=== PATIENT | male | born 1965 | race Hispanic/Latino ===

== ENCOUNTER 2017-05-11 15:56 | Inpatient (IN) | payer MEDICARE ==
[~2017-05-11] VITALS: Ht 170.2 cm; Wt 71.9 kg
[2017-05-11] MEDS ORDERED: MORPHINE SULFATE 4 MG/1ML SYG ONE (17:46)
[2017-05-11] MEDS ORDERED: ONDANSETRON HCL MDV 20ML 2 MG/ML VIAL ONE (17:47)
[2017-05-11 18:09] LABS: BASOPHILS % (AUTO) 0.5 % (0.0-5.0); EOSINOPHILS % (AUTO) 1.2 % (0.0-8.0); HEMATOCRIT 45.3 % (42-54); LYMPHOCYTES % (AUTO) 21.2 % (21.0-51.0); MEAN CORPUSCULAR HEMOGLOBIN 33.9 pg (27.0-33.0); MEAN CORPUSCULAR HGB CONC 36.1 g/dL (32.0-36.0); MEAN CORPUSCULAR VOLUME 93.8 fL (79-99); MONOCYTES % (AUTO) 7.1 % (3.0-13.0); PLATELET COUNT (AUTO) 75 K/uL (130-400); RED BLOOD CELL COUNT(AUTO) 4.83 MIL/uL (4.50-6.20); RED CELL DISTRIBUTION WIDTH 12.9 % (11.0-15.5); WHITE BLOOD COUNT (AUTO) 6.3 K/uL (4.8-10.8)
[2017-05-11 18:19] LABS: INR 1.07 (0.85-1.15); PARTIAL THROMBOPLASTIN TIME 27.1 SEC (26.3-35.5); PROTHROMBIN TIME 11.2 SEC (9.6-11.6)
[2017-05-11 18:41] LABS: CREATININE 0.9 mg/dL (0.5-1.5); POTASSIUM 3.6 mmol/L (3.5-5.1)
[2017-05-11 18:46] LABS: ALBUMIN 3.3 g/dL (3.5-5.0); BILIRUBIN,TOTAL 0.8 mg/dL (0.2-1.0); TOTAL PROTEIN, SERUM 8.6 g/dL (6.0-8.3)
[2017-05-11 20:40] VITALS: BP 147/93
[2017-05-11] MEDS ORDERED: SODIUM CHLORIDE 0.9% 1000ML 1,000 ML IV ONE (21:36)
[2017-05-11 23:37] VITALS: BP 135/73
[2017-05-12] VITALS (21 sets, daily range): BP systolic 85–173; BP diastolic 42–97
[2017-05-12] MEDS ORDERED: VANCOMYCIN 1GM+NS 250ML 250 ML IV SCH (04:15)
[2017-05-12] MEDS: METRONIDAZOLE 500MG/100ML BAG 100 ML IV SCH ×4 (04:15→21:37)
[2017-05-12] MEDS ORDERED: METRONIDAZOLE 500MG/100ML BAG 100 ML ONE (04:22)
[2017-05-12] MEDS ORDERED: VANCOMYCIN 1GM+NS 250ML 250 ML IV ONE (04:23)
[2017-05-12] MEDS ORDERED: VANCOMYCIN PROTOCOL PER PHARMACY IV SCH (05:45)
[2017-05-12 06:15] LABS: HEMATOCRIT 42.9 % (42-54); MEAN CORPUSCULAR HEMOGLOBIN 33.5 pg (27.0-33.0); MEAN CORPUSCULAR HGB CONC 35.5 g/dL (32.0-36.0); MEAN CORPUSCULAR VOLUME 94.3 fL (79-99); PLATELET COUNT (AUTO) 70 K/uL (130-400); RED BLOOD CELL COUNT(AUTO) 4.56 MIL/uL (4.50-6.20); RED CELL DISTRIBUTION WIDTH 12.5 % (11.0-15.5); WHITE BLOOD COUNT (AUTO) 6.8 K/uL (4.8-10.8)
[2017-05-12 06:24] LABS: CREATININE 0.9 mg/dL (0.5-1.5); POTASSIUM 3.6 mmol/L (3.5-5.1)
[2017-05-12] MEDS ORDERED: PROPOFOL 10 MG/ML 20ML VIAL IV ONE (11:02)
[2017-05-12] MEDS: VANCOMYCIN 1GM+NS 250ML 250 ML IV SCH (17:28)
[2017-05-12] MEDS ORDERED: BISACODYL 10 MG SUPP.RECT RC SCH (19:30)
[2017-05-12] MEDS ORDERED: PEG 3350/NA SULF,BICARB,CL/KCL 4000 ML SOLN PO SCH (19:30)
[2017-05-12] MEDS ORDERED: MAGNESIUM CITRATE 296 ML SOLUTION PO SCH (20:15)
[2017-05-12] MEDS ORDERED: MAGNESIUM HYDROXIDE 30 ML/UDCUP PO SCH (20:15)
[2017-05-12] MEDS ORDERED: LACTULOSE 20 GM/30 ML UDCUP PO SCH (20:15)
[2017-05-13 03:05] VITALS: BP 142/94
[2017-05-13] MEDS: METRONIDAZOLE 500MG/100ML BAG 100 ML IV SCH ×4 (04:40→23:58)
[2017-05-13] MEDS: VANCOMYCIN 1GM+NS 250ML 250 ML IV SCH ×2 (06:29→16:26)
[2017-05-13 07:00] VITALS: BP 158/97
[2017-05-13 11:00] VITALS: BP 153/97
[2017-05-13] MEDS ORDERED: MEPERIDINE-PF 25 MG/ML SYG IM SCH (15:15)
[2017-05-13] MEDS ORDERED: MAGNESIUM CITRATE 296 ML SOLUTION PO SCH (15:15)
[2017-05-13 15:50] VITALS: BP 164/96
[2017-05-13 19:05] VITALS: BP 157/99
[2017-05-13] MEDS ORDERED: MEPERIDINE-PF 25 MG/ML SYG ONE ×2 (19:24→23:11)
[2017-05-13] MEDS ORDERED: MEPERIDINE-PF 25 MG/ML SYG IVP SCH (19:45)
[2017-05-13] MEDS ORDERED: BISACODYL 10 MG SUPP.RECT RC ONE ×2 (21:00→23:10)
[2017-05-13 23:05] VITALS: BP 145/77
[2017-05-14 03:05] VITALS: BP 153/74
[2017-05-14 03:27] LABS: HEMATOCRIT 42.1 % (42-54); MEAN CORPUSCULAR HEMOGLOBIN 33.5 pg (27.0-33.0); MEAN CORPUSCULAR HGB CONC 35.9 g/dL (32.0-36.0); MEAN CORPUSCULAR VOLUME 93.3 fL (79-99); NUCLEATED RED BLOOD CELLS 0.1 % (0.0-0.19); PLATELET COUNT (AUTO) 60 K/uL (130-400); RED BLOOD CELL COUNT(AUTO) 4.51 MIL/uL (4.50-6.20); RED CELL DISTRIBUTION WIDTH 12.6 % (11.0-15.5); WHITE BLOOD COUNT (AUTO) 5.6 K/uL (4.8-10.8)
[2017-05-14 03:46] LABS: CREATININE 0.9 mg/dL (0.5-1.5); POTASSIUM 3.6 mmol/L (3.5-5.1)
[2017-05-14] MEDS: VANCOMYCIN 1GM+NS 250ML 250 ML IV SCH ×2 (05:19→17:29)
[2017-05-14] MEDS: METRONIDAZOLE 500MG/100ML BAG 100 ML IV SCH ×3 (06:53→17:29)
[2017-05-14 08:00] VITALS: BP 157/91
[2017-05-14 12:00] VITALS: BP 142/84
[2017-05-14 16:00] VITALS: BP 157/96
[2017-05-14] MEDS ORDERED: SODIUM CHLORIDE 0.9% 1000ML 1,000 ML IV SCH (17:45)
== END 2017-05-14 20:55 | disposition home or self-care (01) | DRG 395 ==
LOC: EDH 15:56 → OBSVTOIN 18:22 → 3DH 18:22
PROVIDERS: ADMIT Internal Medicine; ATTEND Internal Medicine
PROC: 0DJD8ZZ Inspection of Lower Intestinal Tract, Via Natural or Artificial Opening Endoscopic (ICD-10-PCS; principal; 2017-05-12)
PROC: 0DCP7ZZ Extirpation of Matter from Rectum, Via Natural or Artificial Opening (ICD-10-PCS; 2017-05-13)
DX: T18.5XXA Foreign body in anus and rectum, initial encounter (principal); D69.6 Thrombocytopenia, unspecified; K56.41 Fecal impaction; Z85.038 Personal history of other malignant neoplasm of large intestine; Z87.891 Personal history of nicotine dependence; Y93.89 Activity, other specified; Y92.89 Other specified places as the place of occurrence of the external cause; Y99.8 Other external cause status; Z21 Asymptomatic human immunodeficiency virus [HIV] infection status
CPT/HCPCS: 36415; 71045; 74018; 80048; 80053; 80202; 85025; 85027; 85610; 85730; 93005; J2175; J2270; J2704; J3370; J3490; J7030

== ENCOUNTER 2018-09-26 21:12 | Emergency (ER) | payer MEDICARE ==
[2018-09-26 21:41] LABS: APPEARANCE,URINE Clear (CLEAR); BILIRUBIN,URINE Negative (NEGATIVE); COLOR,URINE Yellow (YELLOW); GLUCOSE, URINE (UA) Negative (NEGATIVE); KETONES,URINE Negative (NEGATIVE); LEUKOCYTE ESTERASE ,URINE Negative (NEGATIVE); NITRATE,URINE Negative (NEGATIVE); OCCULT BLOOD,URINE Negative (NEGATIVE); PH,URINE 5.5 (5.0-8.0); PROTEIN,URINE Negative (NEGATIVE); UROBILINOGEN,URINE 0.2 mg/dL (0.2-1.0)
[2018-09-26 22:10] LABS: BASOPHILS % (AUTO) 0.6 % (0.0-5.0); EOSINOPHILS % (AUTO) 0.3 % (0.0-8.0); HEMATOCRIT 44.2 % (42-54); LYMPHOCYTES % (AUTO) 15.7 % (21.0-51.0); MEAN CORPUSCULAR HEMOGLOBIN 34.5 pg (27.0-33.0); MEAN CORPUSCULAR HGB CONC 35.1 g/dL (32.0-36.0); MEAN CORPUSCULAR VOLUME 98.3 fL (79-99); MONOCYTES % (AUTO) 7.6 % (3.0-13.0); NEUTROPHILS % (AUTO) 75.8 % (40.0-77.0); PLATELET COUNT (AUTO) 98 K/uL (130-400); RED CELL DISTRIBUTION WIDTH 13.7 % (11.0-15.5); WHITE BLOOD COUNT (AUTO) 7.1 K/uL (4.8-10.8)
[2018-09-26 22:22] LABS: CREATININE 1.2 mg/dL (0.5-1.5); POTASSIUM 3.9 mmol/L (3.5-5.1)
[2018-09-26 22:26] LABS: ALBUMIN 3.1 g/dL (3.5-5.0); BILIRUBIN,TOTAL 0.8 mg/dL (0.2-1.0); INR 1.12 (0.85-1.15); PARTIAL THROMBOPLASTIN TIME 28.5 SEC (26.3-35.5); PROTHROMBIN TIME 11.7 SEC (9.6-11.6); TOTAL PROTEIN, SERUM 8.2 g/dL (6.0-8.3)
== END 2018-09-26 23:46 | disposition home or self-care (01) ==
LOC: EDH 21:12
DX: R10.32 Left lower quadrant pain (principal); R19.7 Diarrhea, unspecified; R50.9 Fever, unspecified; Z98.890 Other specified postprocedural states; Z85.038 Personal history of other malignant neoplasm of large intestine; Z72.0 Tobacco use
CPT/HCPCS: 36415; 74176; 80053; 81003; 83690; 84484; 85025; 85610; 85730; 93005

== ENCOUNTER → 2018-10-05 | Outpatient (CLI) | payer MEDICARE | END | disposition home or self-care (01) | LOC: RAH 08:40 | PROVIDERS: ATTEND Internal Medicine | DX: D69.6 Thrombocytopenia, unspecified (principal) | CPT/HCPCS: 76705 ==

== ENCOUNTER → 2022-07-29 | Outpatient (CLI) | payer OTHER ==
[~2022-07-29] MED LIST: DARU1TAB PO; DOLU50TA PO
== END | disposition home or self-care (01) ==
LOC: RAH 12:03
PROVIDERS: ATTEND Internal Medicine
DX: M47.812 Spondylosis without myelopathy or radiculopathy, cervical region (principal); M54.12 Radiculopathy, cervical region
CPT/HCPCS: 72040

== ENCOUNTER → 2022-08-09 | Outpatient (CLI) | payer OTHER | END | disposition home or self-care (01) | LOC: RAH 07:53 | PROVIDERS: ATTEND Internal Medicine | DX: M47.22 Other spondylosis with radiculopathy, cervical region (principal); G95.9 Disease of spinal cord, unspecified; M48.02 Spinal stenosis, cervical region | CPT/HCPCS: 72141 ==

== ENCOUNTER 2024-01-06 23:51 | Inpatient (IN) | payer OTHER ==
[~2024-01-06] VITALS: Ht 167.6 cm; Wt 83.0 kg
[2024-01-07] VITALS (23 sets, daily range): BP systolic 127–174; BP diastolic 60–91; PULSE 64–76; RESP 14–18; TEMP 97.5–99; O2SAT 96
[2024-01-07] MEDS: morPHINE 4 MG SYG IVP ONE (01:21)
--- NOTE | 2024-01-07 01:25 | ERN ---
ED Note History of Present Illness Stated Complaint: C/O FO IN RECTUM Chief Complaint: Rectal Foreign Body Time Seen by MD: 00:25 Dictation: This is a 58-year-old male who came into the emergency room stating that he has a foreign body in his rectum. He indicated that during the sex act, he had a salt shaker which is glass with a metal head inserted into his rectum and unfortunately it was stuck. He attempted to bear however he was not able to extrude it out he drank milk thinking that that would help him as nothing worked and he started having pain he came into the ER for further evaluation. No bleeding per rectum no abdominal pain or distention. He has had similar episode of foreign body getting stuck in his rectum even in the past. Temperature 98.4 pulse 95 respirations 20 blood pressure 157/81 with a pulse oximetry 97% on room air His chronic medical problems include HIV positive, history of colon cancer and rectal mass status post removal and resection along with multiple abdominal surgeries. This included partial/right hemicolectomy and ventral hernia repair Allergies: Coded Allergies: No Known Drug Allergies (Unverified Allergy, Unknown, 05/11/17) Home Meds Reported Medications Dolutegravir Sodium (Tivicay) 50 Mg Tablet, 50 MG PO DAILY, TAB 06/28/22 Darunavir/Cobicistat (Prezcobix 800 mg-150 mg Tablet) 1 Each Tablet, 1 EACH PO DAILY, TAB 06/28/22 Past Medical History Past Medical History: HIV, Other Additional Past Medical Hx: HIV; HX OF COLON CA (IN REMISSION) Surgical History: Appendectomy, None Surgical History Other: HERNIA REPAIR Family History: Negative RN Note Reviewed/Agreed w/PFSH: Yes Review of System Dictation Constitutional: Negative for fever,chills, and weight loss Eyes: Negative for injury, pain,redness, and discharge ENT: Negative for injury,pain or swelling Cardiovascular: Negative for chest pain, palpitations, and edema Respiratory: Negative for shortness of breath, cough, and wheezing, Abdomen/GI: Negative for abdominal pain, nausea, vomiting, diarrhea, and constipation-- foreign body in the rectum as described in the history of present illness Back: Negative for injury and pain : Negative for injury, bleeding and discharge MS/Extremity: Negative for injury and deformity Skin: Negative for rash, and discoloration Neuro: Negative for headache, weakness, numbness, tingling, and seizure Psych: Negative for suicide ideation, homicidal ideation, and hallucinations Initial Vital Sign VS Vital Signs Date Time Temp Pulse Resp B/P (MAP) Pulse Ox O2 Delivery O2 Flow Rate FiO2 01/06/24 23:53 98.4 95 20 157/81 97 Room Air 01/07/24 01:00 0 21 Physical Exam Dictation General: awake, alert, NAD somewhat disturbed by the event Head/Face: Normocephalic, atraumatic Eyes: PERRL, EOMI, vision at baseline ENT: oral cavity clear, TMs clear, no signs of infection Neck: Trachea midline, supple, no nuchal rigidity Cardiovascular: RRR, normal S1/S2, No MRGs, no JVD Respiratory: CTAB, no respiratory distress, No rales or wheezes Abdomen: Soft, non-tender, non-distended, normal bowel sounds, no guarding or rebound. Skin: Warm, dry, normal turgor, no rash MS/Extremity: Pulses equal, no cyanosis, neurovascular intact, FROM Neuro: COAx4, GCS 15, strength 5/5, CN 2-12 intact, normal cerebellar exam, normal gait, Psych: Normal behavior, mood, and affect normal Extremities-trace edema without any palpable cords, Homans sign is negative Rectal exam I was able to feel the base of the top salt shaker with the tip of my finger. No blood was noted. Unable to reach the salt shaker. Results (Laboratory/Radiology) Laboratory/Radiology Laboratory Tests Test 01/07/24 01:42 White Blood Count 6.8 K/uL (4.8-10.8) Red Blood Count 4.11 MIL/uL (4.50-6.20) L Hemoglobin 13.4 g/dL (14.0-18.0) L Hematocrit 38.4 % (42-54) L Mean Corpuscular Volume 93.4 fL (79-99) Mean Corpuscular Hemoglobin 32.6 pg (27.0-33.0) Mean Corpuscular Hemoglobin Concent 34.9 g/dL (32.0-36.0) Red Cell Distribution Width 12.6 % (11.0-15.5) Platelet Count 158 K/uL (130-400) Mean Platelet Volume 8.4 fL (7.5-10.5) Immature Granulocyte % (Auto) 0.4 % (0-1) Neutrophils (%) (Auto) 62.5 % (40.0-77.0) Lymphocytes (%) (Auto) 28.3 % (21.0-51.0) Monocytes (%) (Auto) 7.3 % (3.0-13.0) Eosinophils (%) (Auto) 0.9 % (0.0-8.0) Basophils (%) (Auto) 0.6 % (0.0-5.0) Neutrophils # (Auto) 4.3 K/uL (1.8-7.7) Lymphocytes # (Auto) 1.9 K/uL (1.0-4.8) Monocytes # (Auto) 0.5 K/uL (0.1-1.0) Eosinophils # (Auto) 0.06 K/uL (0.00-0.70) Basophils # (Auto) 0.04 K/uL (0.00-0.20) Absolute Immature Granulocyte (auto 0.03 K/uL (0-1) Nucleated Red Blood Cells 0.0 % (0.0-0.19) Sodium Level 133 mmol/L (136-145) L Potassium Level 3.8 mmol/L (3.5-5.1) Chloride Level 99 mmol/L (101-111) L Carbon Dioxide Level 24 mmol/L (21-32) Blood Urea Nitrogen 9 mg/dL (7-18) Creatinine 0.9 mg/dL (0.5-1.3) Glomerular Filtration Rate Calc 98 mL/min (>90) Random Glucose 142 mg/dL (70-105) H Total Calcium 9.2 mg/dL (8.5-10.1) CT Scan Comment: CT scan of the abdomen and pelvis without contrast was obtained stat read reading showed that there was a structure within the appear N/C of a salt shaker in the rectum. No evidence of any pneumoperitoneum. No rectal wall thickening is noted. Liver spleen pancreas adrenal glands and kidneys are normal large and small bowel to the level of sigmoid appear normal ED Course ED Course Orders Procedure Category Date Status Time Cbc With Differential LAB 01/07/24 Complete 00:28 Basic Metabolic Panel LAB 01/07/24 Complete 00:28 Morphine 4mg Syg PHA 01/07/24 Complete (Morphine 4mg Syg) 01:30 Ct Abdomen/Pelvis W/O CT 01/07/24 Taken Contrast 01:02 Hydromorphone 1 Mg PHA 01/07/24 Complete Inj (Dilaudid 1mg Inj 04:00 Gastroenterology CONPHYSVC 01/07/24 Transmitted Consult 05:06 Edm Admit Bridge Order ADM 01/07/24 Transmitted 05:14 Admit Orders ADM 01/07/24 Transmitted 05:14 Current Medications Medications (Trade) Dose Ordered Sig/Julio Route PRN Reason Start Time Stop Time Status Last Admin Dose Admin Hydromorphone HCl (DiLAUDid 1MG INJ) 1 mg ONCE ONCE IVP 01/07/24 04:00 01/07/24 04:01 DC 01/07/24 04:02 Morphine Sulfate (morPHINE 4MG SYG) 4 mg ONCE ONCE IVP 01/07/24 01:30 01/07/24 01:31 DC 01/07/24 01:21 Vital Signs Date Time Temp Pulse Resp B/P (MAP) Pulse Ox O2 Delivery O2 Flow Rate FiO2 01/07/24 03:19 78 17 157/76 96 Room Air* 0 21 01/07/24 01:00 98.2 76 18 157/73 96 Room Air* 0 21 01/06/24 23:53 98.4 95 20 157/81 97 Room Air We will perform diagnostic labs, advanced imaging and administer medications according to the patient's complaint. Once the results are available, will review and personally interpreted the labs to rule out any acute life- threatening emergency the trach require immediate intervention and treatment. I will then re-evaluate the patient after treatment and diagnostic exams have return to determine whether the patient requires any further testing, can safely be discharged home or need further admission to hospital for additional treatment and evaluation. We will pursue CT scan of the abdomen and pelvis as the foreign object is glass and metal and then consult surgery. 1:[address] Klein general surgeon on-call and discussed the patient and she indicated that she does not have privileges for colonoscopy and that she will not be able to help but recommended calling GI team. She asked to call back should there be any surgical need. 4:[address] scan does not show any obvious pneumoperitoneum, GI will be consulted 5:[address]Owen Hensley, pad machine offbearer and went over the presentation findings imaging studies. He said that he would definitely try colonoscopy and attempt at removing the foreign body. We will admit the patient to the hospitalist service and keep the patient NPO for now Dr. Rob covering for Dr. Garcia accepted the patient for admission and further management Medical Decision Making MDM MDM: Differential diagnosis: Foreign body impaction in rectum, perforation trauma to the rectum Rationale: Tests considered and ordered secondary to shared decision making include: labs, ECG and radiology Previous outside records reviewed: Old ER visits. Risk of complication and/or morbidity or mortality of patient management: None Medications-Per medication reconciliation Need for hospitalization: Patient does meet criteria for hospitalization. Need for emergency major/minor surgery: No There are no social concerns with this patient. Prescription drug management Prescriptions will include symptomatic care Patient's prior external medical records from other ER visits were reviewed by me as indicated. Prior testing and results from previous visits were reviewed. Prior tests were taken into account with medical decision making and resource utilization, independent historian/historians were used to obtain complete medical history. I independently interpreted the test that were performed, results were reviewed by me and considered findings on radiology if ordered. Medical management and examination interpretation discussions were had by me with other qualified healthcare professionals as indicated for the patient's care. Problem List Problem List: (1) Foreign body anus/rectum (2) Rectal pain (3) HIV positive (4) History of rectal cancer DX & DISP Disposition: Inpatient Decision to Admit Time: 01:24 Departure Impression: Primary Impression: Foreign body anus/rectum Additional Impressions: Rectal pain, HIV positive, History of rectal cancer Condition: Stable Additional Instructions: Patient was informed of all the diagnostic labs and procedures conducted in the emergency room today and demonstrated understanding of the results. I personally reviewed and interpreted all the diagnostic exams performed in the ER today. The patient will be admitted to the hospital for further treatment and evaluation. Disposition-admit to facility Condition-stable/guarded Course-uncertain at this time Pain status-decreased Assessment-exam unchanged Admission Certification- I certify that the patients status is appropriate and is based on my best clinical judgment and the patient's condition as documented in the medical records Referrals: VINCENZO GARCIA MD (PCP) SHRADDHA DENIS MD Jan 07, 2024 01:25
[2024-01-07 01:49] LABS: BASOPHILS # (AUTO) 0.04 K/uL (0.00-0.20); BASOPHILS % (AUTO) 0.6 % (0.0-5.0); EOSINOPHILS # (AUTO) 0.06 K/uL (0.00-0.70); EOSINOPHILS % (AUTO) 0.9 % (0.0-8.0); HEMATOCRIT 38.4 % (42-54); IMMATURE GRANULOCYTE ABSOLUTE 0.03 K/uL (0-1); LYMPHOCYTES # (AUTO) 1.9 K/uL (1.0-4.8); LYMPHOCYTES % (AUTO) 28.3 % (21.0-51.0); MEAN CORPUSCULAR HEMOGLOBIN 32.6 pg (27.0-33.0); MEAN CORPUSCULAR HGB CONC 34.9 g/dL (32.0-36.0); MEAN CORPUSCULAR VOLUME 93.4 fL (79-99); MONOCYTES # (AUTO) 0.5 K/uL (0.1-1.0); MONOCYTES % (AUTO) 7.3 % (3.0-13.0); NEUTROPHILS # (AUTO) 4.3 K/uL (1.8-7.7); NEUTROPHILS % (AUTO) 62.5 % (40.0-77.0); PLATELET COUNT (AUTO) 158 K/uL (130-400); RED BLOOD CELL COUNT(AUTO) 4.11 MIL/uL (4.50-6.20); RED CELL DISTRIBUTION WIDTH 12.6 % (11.0-15.5); WHITE BLOOD COUNT (AUTO) 6.8 K/uL (4.8-10.8)
[2024-01-07 01:57] LABS: CREATININE 0.9 mg/dL (0.5-1.3); POTASSIUM 3.8 mmol/L (3.5-5.1)
[2024-01-07] MEDS: hydroMORPHone 1 MG INJ IVP ONE (04:02)
[2024-01-07] MEDS ORDERED: DEXTROSE 5 %-0.45 % NACL 1,000 ML IV SCH (05:30)
[2024-01-07] MEDS ORDERED: morPHINE 4 MG SYG IVP PRN (05:30)
--- NOTE | 2024-01-07 07:15 | NUR ---
REPORT GIVEN TO KIMBERLY VALLADARES
--- NOTE | 2024-01-07 07:21 | HMCIMG ---
CT ABDOMEN/PELVIS W/O CONTRAST HISTORY: Foreign body COMPARISON: 04/29/2021 TECHNIQUE: Multiple sequential axial images of the abdomen and pelvis were obtained from the dome of the diaphragm through symphysis pubis. Patient was not given contrast through intravenous route. Oral contrast was not given. FINDINGS: No pleural effusion is seen bilaterally. There is no evidence of parenchymal disease or pulmonary nodule of the visualized lower lungs. Degenerative changes of the thoracolumbar spine are present. The heart is not enlarged. Post hernia repair changes are seen in place. Postop changes in the intra-abdominal wall. However, there appears to be ventral hernia noted in this area with bowel content. Radiopaque foreign body is seen consistent with patient history of glass salt shaker in the rectosigmoid colon approximately 5 cm from the rectum. The liver, spleen, adrenal glands and pancreas are unremarkable. There is no evidence of hydronephrosis bilaterally. No evidence of renal stone is seen. Fecal material is seen in the colon. There are normal size retroperitoneal and mesenteric lymph nodes. No ascites is seen. Atherosclerotic changes are present. Pelvic sidewalls are symmetric bilaterally. Bladder is well distended without wall thickening. IMPRESSION: 1. Radiopaque foreign body is seen consistent with patient history of glass salt shaker in the rectosigmoid colon approximately 5 cm from the rectum. No evidence of pneumoperitoneum is seen. 2. Ventral hernia with bowel content. CT was performed with one or more following dose reduction techniques: automated exposure control, adjustment of the mA and kv according to patient's size, or use of a iterative reconstruction technique.
[2024-01-07] MEDS ORDERED: LIDOCAINE PF 100MG/5ML (2%) SYRINGE 5ML ONE (10:07)
[2024-01-07] MEDS ORDERED: proPOFol 10 MG/ML 20ML VIAL IV ONE (10:10)
[2024-01-07] MEDS ORDERED: MIDAZOLAM HCL 1 MG/ML 2ML VIAL ONE (10:10)
[2024-01-07] MEDS ORDERED: FENTanyl CITRate PF 50 MCG/1 ML 2ML VIAL ONE ×2 (10:10→11:19)
[2024-01-07] MEDS ORDERED: rocuRONium bROMide 10MG/1ML 5ML VL ONE ×2 (10:10→11:19)
[2024-01-07] MEDS ORDERED: dexaMETHasone SOD PHOSPHATE 4 MG/ML 1ML VIAL ONE (10:11)
[2024-01-07] MEDS ORDERED: ondanSETRON 4MG INJ ONE (10:11)
[2024-01-07] MEDS ORDERED: LIDOCAINE HCL 1% 20 ML VIAL ONE (10:13)
[2024-01-07] MEDS ORDERED: SUCCINYLCHOLINE CHLORIDE 20 MG/ML 10 ML VIAL ONE (10:23)
[2024-01-07] MEDS: LIDOCAINE 2%-EPI 1:200,000 20 ML VIAL IJ ONE (10:25)
--- NOTE | 2024-01-07 10:28 | CONS ---
COLORECTAL CONSULTATION NOTE Date of Consultation: Jan 07, 2024 Time of Consultation: 10:26 History of Present Illness: [ ] The patient is a very pleasant 58-year-old male who presents to the emergency room with a foreign body in the rectum. The patient states he placed a salt shaker in his rectum. He states he feels like he is able to almost evacuated was unable to. He reports no abdominal pain. Review of Systems: CONSTITUTIONAL: No malaise or change in sensation of wellbeing. ENMT: No rhinorrhea, otorrhea, sinus pain, ear ache. CARDIOVASCULAR: No angina, palpitations, orthopnea or paroxysmal dyspnea. RESPIRATORY: No SOB. GASTROINTESTINAL: No abdominal pain, nausea, vomiting, diarrhea, hematemesis, melena or change in the patient's habitual bowel movements consistency/number. GENITOURINARY: No dysuria, hematuria or change in bladder continence. MUSCULOSKELETAL: No new muscle pain or decrease in muscular strength. No new joint swelling, redness or tenderness. SKIN: No new rash. Past Medical History: [ ] HIV History of colorectal cancer Past Surgical Right colectomy Ventral hernia repair Past Social History: [ ] Family History: [ ] Coded Allergies: No Known Drug Allergies (Unverified Allergy, Unknown, 05/11/17) Physical Exam: GEN: Awake, alert, oriented in person, time and place, and in no acute distress. HEENT: No sinus tenderness. Tympanic membranes were not examined. No rhinorrhea. Oral pharyngeal mucosa is pink, moist and within normal limits. Neck is supple with no cervical lymphadenopathy, thyromegaly or JVD. CHEST: Inspection, palpation and percussion of the chest were unremarkable. Lung auscultation revealed normal breath sounds bilaterally. CARDIAC: PMI is within normal limits. Heart sounds are regular. Normal S1, S2. No gallop or murmur. ABD: Soft, non-tender and not distended. No peritoneal signs on palpation. No organomegaly. Normal bowel sounds. EXT: No cyanosis or clubbing. No edema. SKIN: Intact. No rashes. JOINTS: No evidence of synovitis or acute arthritis. NEURO: Alert and oriented to name, place and person. Cranial nerve examination is unremarkable. No focal motor deficits. Normal speech. Gait is normal. Strength is normal. Vital Sign (Last 24 Hours) 01/07/24 01/07/24 06:42 08:00 Temp 98.1 Pulse 74 Resp 18 B/P (MAP) 164/79 Pulse Ox 97 O2 Delivery Room Air O2 Flow Rate 0 FiO2 21 Laboratory: [ ] Laboratory: Test 01/07/24 01:42 Range/Units White Blood Count 6.8 4.8-10.8 K/uL Red Blood Count 4.11 L 4.50-6.20 MIL/uL Hemoglobin 13.4 L 14.0-18.0 g/dL Hematocrit 38.4 L 42-54 % Mean Corpuscular Volume 93.4 79-99 fL Mean Corpuscular Hemoglobin 32.6 27.0-33.0 pg Mean Corpuscular Hemoglobin Concent 34.9 32.0-36.0 g/dL Red Cell Distribution Width 12.6 11.0-15.5 % Platelet Count 158 130-400 K/uL Mean Platelet Volume 8.4 7.5-10.5 fL Immature Granulocyte % (Auto) 0.4 0-1 % Neutrophils (%) (Auto) 62.5 40.0-77.0 % Lymphocytes (%) (Auto) 28.3 21.0-51.0 % Monocytes (%) (Auto) 7.3 3.0-13.0 % Eosinophils (%) (Auto) 0.9 0.0-8.0 % Basophils (%) (Auto) 0.6 0.0-5.0 % Neutrophils # (Auto) 4.3 1.8-7.7 K/uL Lymphocytes # (Auto) 1.9 1.0-4.8 K/uL Monocytes # (Auto) 0.5 0.1-1.0 K/uL Eosinophils # (Auto) 0.06 0.00-0.70 K/uL Basophils # (Auto) 0.04 0.00-0.20 K/uL Absolute Immature Granulocyte (auto 0.03 0-1 K/uL Nucleated Red Blood Cells 0.0 0.0-0.19 % Sodium Level 133 L 136-145 mmol/L Potassium Level 3.8 3.5-5.1 mmol/L Chloride Level 99 L 101-111 mmol/L Carbon Dioxide Level 24 21-32 mmol/L Blood Urea Nitrogen 9 7-18 mg/dL Creatinine 0.9 0.5-1.3 mg/dL Glomerular Filtration Rate Calc 98 >90 mL/min Random Glucose 142 H 70-105 mg/dL Total Calcium 9.2 8.5-10.1 mg/dL Current Medications Medications (Trade) Dose Ordered Sig/Julio Route PRN Reason Start Time Stop Time Status Last Admin Dose Admin Dextrose/Sodium Chloride 1,000 ml @ 0 mls/hr Q0M IV 01/07/24 05:30 02/06/24 05:29 Morphine Sulfate (morPHINE 4MG SYG) 4 mg Q6H PRN IVP MODERATE PAIN (4-6) 01/07/24 05:30 01/14/24 05:29 Diagnostics / Radiology: [COPY/PASTE HERE IF NO REPORTS PLEASE DELETE SECTION] Assessment: [ ] The patient has a foreign body in his rectum. He has been offered an exam under anesthesia. The complications, risks, alternatives and benefits were discussed with him in detail. Risks include infection, bleeding, injury to the anus, need for further procedures, injury to the rectum, need for stoma. All questions were answered his satisfaction and he wished to proceed with the operation. Plan: [ ] VIGNESH KOLB MD Jan 07, 2024 10:28
[2024-01-07] MEDS ORDERED: BUPIvacaine/PF 0.25% 30ML VIAL IJ ONE (10:55)
[2024-01-07] MEDS ORDERED: LIDOCAINE 1%-EPI 1:100,000 20 ML VIAL ONE (10:55)
[2024-01-07] MEDS: acetaMINOPHEN 100 ML ONE (13:01)
[2024-01-07] MEDS: SUGAMMADEX SODIUM 200 MG/2 ML VIAL IV ONE (13:01)
--- NOTE | 2024-01-07 16:14 | OP ---
Operative Note: DATE OF PROCEDURE: 01/07/24 SURGEON: VIGNESH KOLB MD MEDICAL CLAIMS ANALYST: [None] ANESTHESIA: [General] ANESTHESIOLOGIST/EMERGENCY MEDICINE SPECIALIST: [] PREOPERATIVE DIAGNOSIS: [Rectal foreign body] POSTOPERATIVE DIAGNOSIS: [Rectal foreign body. Rectal laceration.] SYNOPSIS: [Complete removal of rectal foreign body.] PROCEDURE: [Complete removal of rectal foreign body. Exam under anesthesia. Flexible sigmoidoscopy. Repair of rectal laceration.] ESTIMATED BLOOD LOSS: [Minimal] INDICATIONS: [The patient is a very pleasant 58-year-old male presents to the emergency room after having placed a salt shaker in his rectum. He was unable to remove this. He was offered operative management. The complications, risks alternatives and benefits were discussed with him in detail. Risks include infection, bleeding, injury to the rectum, need for further procedures, poor bowel function and need for stoma. All questions were answered to his satisfaction and he wished to proceed with the operation. DESCRIPTION OF PROCEDURE: [The patient brought to the operating theater and placed supine on the operating table. After appropriate general anesthesia was administered IV antibiotics given the patient was placed in the dorsal lithotomy position. Perineum was prepped and draped in appropriate sterile surgical fashion. Local anesthetic injected as a perineal block. The patient was noted to have a square salt shaker in his rectum. Two Lucas catheters were placed above the salt shaker. This was used to retract the specimen down to the distal anus. The specimen was then removed. This was passed off the table. The rectum was then insufflated with air and a flexible sigmoidoscope was inserted. There was noted to be a rectal laceration. This was partial thickness. An anoscope was inserted and the defect was repaired with a chromic suture. Excellent hemostasis was achieved. There were no complications. The instrument sponge and needle count were reported as correct x2 by nursing staff. VIGNESH KOLB MD Jan 07, 2024 16:14
--- NOTE | 2024-01-07 23:40 | HP ---
HISTORY OF PRESENT ILLNESS: The patient of Dr. Schroeder. The patient came to the Emergency Room referring that he has a foreign body in his rectum. The patient refers that he had salt shake stuck in his rectum during intercourse. He has been unable to evacuate the foreign body and decided to come to the Emergency Room. The patient had similar episodes in the past. PAST MEDICAL HISTORY: HIV positive and history of colon cancer. PAST SURGICAL HISTORY: Status post removal of a rectal mass, multiple abdominal surgeries, status post right hemicolectomy, and ventral hernia repair. MEDICATIONS: As indicated in the chart. REVIEW OF SYSTEMS: Having no fever, chills, seizures, or loss of consciousness. No chest pain, palpitations. No cough, wheeze, or rhonchi. No nausea or vomiting. No dysuria, urgency, or frequency. No rashes, petechiae, or ecchymoses. No hallucinations, delusions. No suicidal ideation. PHYSICAL EXAMINATION: GENERAL: He is currently awake, alert, oriented in person, time and place. VITAL SIGNS: Blood pressure 153/81, pulse 95, and respirations 20. HEENT: Normocephalic, atraumatic. LUNGS: Decreased breath sounds bilaterally. HEART: S1, S2 are distant. ABDOMEN: Prominent, soft, nontender, reducible mass in the left upper quadrant. EXTREMITIES: No clubbing, cyanosis. RECTAL: Deferred. LABORATORY DATA: WBC count 6.8, hemoglobin 13.4, and platelets 158. Sodium 133, potassium 3.8, and creatinine 0.9. CT scan of the abdomen and pelvis shows a foreign body in the rectum. No evidence of any pneumoperitoneum. ASSESSMENT AND PLAN: * Foreign body in the rectum and a consultation with Surgery and GI was made by the ER physician. Continue with recommendations. * Human immunodeficiency virus. Continue with his home medications. The patient will be followed by Dr. Schroeder, his primary care. DOS:01/07/2024 TID: [id number] RECEIPT: [id number] MTDD
[2024-01-08 04:25] VITALS: BP 127/65; PULSE 77; RESP 18; TEMP 98.7
[2024-01-08 08:05] VITALS: BP 127/65; PULSE 75; RESP 18; TEMP 98.3
--- NOTE | 2024-01-08 08:25 | PN ---
COLORECTAL PROGRESS NOTE Date of Visit: Jan 08, 2024 Time of Visit: 08:25 Events / Notes: [NO acute events overnight. Patient reports feeling well. His VSS. He has tolerated regular diet. No n/v. Abd soft. BBS are clear. He reports he is passing flatus and has had a bm. Informed him to fu at S in 1 week. He agreed. ] Review of Systems: CONSTITUTIONAL: No malaise or change in sensation of wellbeing. ENMT: No rhinorrhea, otorrhea, sinus pain, ear ache. CARDIOVASCULAR: No angina, palpitations, orthopnea or paroxysmal dyspnea. RESPIRATORY: No SOB. GASTROINTESTINAL: No abdominal pain, nausea, vomiting, diarrhea, hematemesis, melena or change in the patient's habitual bowel movements consistency/number. GENITOURINARY: No dysuria, hematuria or change in bladder continence. MUSCULOSKELETAL: No new muscle pain or decrease in muscular strength. No new joint swelling, redness or tenderness. SKIN: No new rash. Physical Exam: GEN: Awake, alert, oriented in person, time and place, and in no acute distress. HEENT: No rhinorrhea. Oral pharyngeal mucosa is pink, moist and within normal limits. CHEST: Inspection, palpation of the chest were unremarkable. Lung auscultation revealed normal breath sounds bilaterally. CARDIAC:. Heart sounds are regular. ABD: Soft, non-tender and not distended. No peritoneal signs on palpation. No organomegaly. Normal bowel sounds. EXT: No cyanosis or clubbing. No edema. SKIN: Intact. No rashes. JOINTS: No evidence of synovitis or acute arthritis. NEURO: Alert and oriented to name, place and person. Cranial nerve examination is unremarkable. No focal motor deficits. Normal speech. Gait is normal. Strength is normal. Vital Signs (last 8hr) Date Time Temp Pulse Resp B/P (MAP) Pulse Ox O2 Delivery O2 Flow Rate FiO2 01/08/24 08:05 98.2 75 18 127/65 92 Room Air 01/08/24 04:25 98.8 77 18 127/65 95 Room Air Laboratory: [ ] Laboratory: Test 01/07/24 01:42 Range/Units White Blood Count 6.8 4.8-10.8 K/uL Red Blood Count 4.11 L 4.50-6.20 MIL/uL Hemoglobin 13.4 L 14.0-18.0 g/dL Hematocrit 38.4 L 42-54 % Mean Corpuscular Volume 93.4 79-99 fL Mean Corpuscular Hemoglobin 32.6 27.0-33.0 pg Mean Corpuscular Hemoglobin Concent 34.9 32.0-36.0 g/dL Red Cell Distribution Width 12.6 11.0-15.5 % Platelet Count 158 130-400 K/uL Mean Platelet Volume 8.4 7.5-10.5 fL Immature Granulocyte % (Auto) 0.4 0-1 % Neutrophils (%) (Auto) 62.5 40.0-77.0 % Lymphocytes (%) (Auto) 28.3 21.0-51.0 % Monocytes (%) (Auto) 7.3 3.0-13.0 % Eosinophils (%) (Auto) 0.9 0.0-8.0 % Basophils (%) (Auto) 0.6 0.0-5.0 % Neutrophils # (Auto) 4.3 1.8-7.7 K/uL Lymphocytes # (Auto) 1.9 1.0-4.8 K/uL Monocytes # (Auto) 0.5 0.1-1.0 K/uL Eosinophils # (Auto) 0.06 0.00-0.70 K/uL Basophils # (Auto) 0.04 0.00-0.20 K/uL Absolute Immature Granulocyte (auto 0.03 0-1 K/uL Nucleated Red Blood Cells 0.0 0.0-0.19 % Sodium Level 133 L 136-145 mmol/L Potassium Level 3.8 3.5-5.1 mmol/L Chloride Level 99 L 101-111 mmol/L Carbon Dioxide Level 24 21-32 mmol/L Blood Urea Nitrogen 9 7-18 mg/dL Creatinine 0.9 0.5-1.3 mg/dL Glomerular Filtration Rate Calc 98 >90 mL/min Random Glucose 142 H 70-105 mg/dL Total Calcium 9.2 8.5-10.1 mg/dL Current Medications Medications (Trade) Dose Ordered Sig/Julio Route PRN Reason Start Time Stop Time Status Last Admin Dose Admin Dextrose/Sodium Chloride 1,000 ml @ 0 mls/hr Q0M IV 01/07/24 05:30 02/06/24 05:29 Morphine Sulfate (morPHINE 4MG SYG) 4 mg Q6H PRN IVP MODERATE PAIN (4-6) 01/07/24 05:30 01/14/24 05:29 ] Assessment: [ ] The patient had a foreign body in his rectum which was removed. He is doing very well this morning. He is passing flatus reported having a bm. His VSS. Will sign off on case. Patient may be discharged when cleared by Medical. Plan F/U at TDS 1-2 weeks.: [ LATIA TORRES NP Jan 08, 2024 08:25
[2024-01-08 09:43] VITALS: O2SAT 96
[2024-01-08] MEDS: MAGNESIUM HYDROXIDE 30 ML/UDCUP PO ONE (09:43)
--- NOTE | 2024-01-08 11:21 | NUR ---
DISCHARGE PIV DC'D DISCHARGE INSTRUCTIONS PROVIDED TO THE PATIENT PATIENT IS AWARE OF TAKING AN OTC DAILY STOOL SOFTENER PATIENT IS AWARE OF FOLLOW UP APPOINTMENT WITH DR. RAM OFFICE ALL QUESTIONS ANSWERED PRIOR TO DISCHARGE
[2024-01-09] MEDS ORDERED: Darunavir/Cobicistat (Prezcobix 800 mg-150 mg Tablet) PO SCH (09:00)
--- NOTE | 2024-01-09 18:41 | PN ---
GASTROENTEROLOGY PROGRESS NOTE Date of Visit: Jan 08, 2024 Time of Visit: 18:40 Events / Notes: [ ] Review of Systems: CONSTITUTIONAL: No malaise or change in sensation of wellbeing. ENMT: No rhinorrhea, otorrhea, sinus pain, ear ache. CARDIOVASCULAR: No angina, palpitations, orthopnea or paroxysmal dyspnea. RESPIRATORY: No SOB. GASTROINTESTINAL: No abdominal pain, nausea, vomiting, diarrhea, hematemesis, melena or change in the patient's habitual bowel movements consistency/number. GENITOURINARY: No dysuria, hematuria or change in bladder continence. MUSCULOSKELETAL: No new muscle pain or decrease in muscular strength. No new joint swelling, redness or tenderness. SKIN: No new rash. Physical Exam: GEN: Awake, alert, oriented in person, time and place, and in no acute distress. HEENT: No sinus tenderness. Tympanic membranes were not examined. No rhinorrhea. Oral pharyngeal mucosa is pink, moist and within normal limits. Neck is supple with no cervical lymphadenopathy, thyromegaly or JVD. CHEST: Inspection, palpation and percussion of the chest were unremarkable. Lung auscultation revealed normal breath sounds bilaterally. CARDIAC: PMI is within normal limits. Heart sounds are regular. Normal S1, S2. No gallop or murmur. ABD: Soft, non-tender and not distended. No peritoneal signs on palpation. No organomegaly. Normal bowel sounds. EXT: No cyanosis or clubbing. No edema. SKIN: Intact. No rashes. JOINTS: No evidence of synovitis or acute arthritis. NEURO: Alert and oriented to name, place and person. Cranial nerve examination is unremarkable. No focal motor deficits. Normal speech. Gait is normal. Strength is normal. Laboratory: [ ] Current Medications Medications (Trade) Dose Ordered Sig/Julio Route PRN Reason Start Time Stop Time Status Last Admin Dose Admin Dextrose/Sodium Chloride 1,000 ml @ 0 mls/hr Q0M IV 01/07/24 05:30 01/08/24 12:01 DC Home Med (Home Medication) Darunavir/ Cobicistat (Prezcobix ... DAILY PO 01/09/24 09:00 01/08/24 12:01 DC Home Med (Home Medication) Dolutegravir Sodium (Tivic... DAILY PO 01/09/24 09:00 01/08/24 12:01 DC Morphine Sulfate (morPHINE 4MG SYG) 4 mg Q6H PRN IVP MODERATE PAIN (4-6) 01/07/24 05:30 01/08/24 12:01 DC Diagnostics / Radiology: [COPY/PASTE HERE IF NO REPORTS PLEASE DELETE SECTION] Assessment: [ ] Plan: [ ] LISA TOLENTINO FORM LAYER Jan 09, 2024 18:41
== END 2024-01-08 11:30 | disposition home or self-care (01) | DRG 330 ==
LOC: EDH 23:51 → EDHIP 01-07 05:15 → 3DH 01-07 13:03
PROVIDERS: ADMIT Internal Medicine; ATTEND Internal Medicine
PROC: 0DQP8ZZ Repair Rectum, Via Natural or Artificial Opening Endoscopic (ICD-10-PCS; 2024-01-07)
PROC: 3E0T3BZ Introduction of Anesthetic Agent into Peripheral Nerves and Plexi, Percutaneous Approach (ICD-10-PCS; 2024-01-07)
PROC: 0DCP8ZZ Extirpation of Matter from Rectum, Via Natural or Artificial Opening Endoscopic (ICD-10-PCS; principal; 2024-01-07 10:19)
DX: T18.5XXA Foreign body in anus and rectum, initial encounter (principal); S36.63XA Laceration of rectum, initial encounter; K62.89 Other specified diseases of anus and rectum; Z21 Asymptomatic human immunodeficiency virus [HIV] infection status; W44.9XXA Unspecified foreign body entering into or through a natural orifice, initial encounter; Z85.048 Personal history of other malignant neoplasm of rectum, rectosigmoid junction, and anus; Z90.49 Acquired absence of other specified parts of digestive tract; Y92.89 Other specified places as the place of occurrence of the external cause; Y93.89 Activity, other specified; Y99.8 Other external cause status
CPT/HCPCS: 36415; 45330; 74176; 80048; 85025; 99285; A4344; G0378; J0330; J1100; J1171; J2003; J2250; J2270; J2405; J2704; J3010; J3490; J7120; A4216; A4222; A4223; A4649; A4663; A4930; J0665; J0690

== ENCOUNTER 2024-09-22 06:12 | Day surgery (SDC) | payer OTHER, MEDICARE ==
[2024-09-20 13:35] VITALS: BP 134/60; PULSE 64; RESP 17; TEMP 98.2
--- NOTE | 2024-09-20 13:42 | EKG ---
[facility] Test Date: 2024-09-20 Test Time: 13:10:55 Pat Name: MARLENA MCCLELLAN Department: [facility] Room: Gender: M Splitter Operator: [id number] : 1965 Requested By: INGRID BUTTERFIELD Order Number: [id number] Reading MD: Fab Chan Measurements Intervals Dola Rate: 67 P: 61 CT: 181 QRS: -34 QRSD: 137 T: 45 QT: 424 QTc: 446 Interpretive Statements Sinus rhythm Right bundle branch block Compared to ECG 04/28/2021 14:31:45 Left-axis deviation no longer present Electronically Signed On 09-20-2024 19:17:19 CDT by Fab Chan Please click the below link to view image of tracing.
[2024-09-20 13:44] LABS: IMMATURE GRANULOCYTE ABSOLUTE 0.01 K/uL (0-1); NUCLEATED RED BLOOD CELLS 0.0 % (0.0-0.19); PLATELET COUNT (AUTO) 130 K/uL (130-400); RED BLOOD CELL COUNT(AUTO) 4.70 MIL/uL (4.50-6.20); RED CELL DISTRIBUTION WIDTH 13.1 % (11.0-15.5); WHITE BLOOD COUNT (AUTO) 5.4 K/uL (4.8-10.8)
[2024-09-20 13:55] LABS: INR 1.12 (0.85-1.15)
[2024-09-20 13:58] LABS: ASPARTATE AMINOTRANSFERASE 30.0 U/L (10-37); CREATININE 0.8 mg/dL (0.5-1.3); GLOMERULAR FILTR. RATE CALC 101.0 mL/min (>90); GLUCOSE,RANDOM 138.0 mg/dL (70-105); SODIUM SERUM 137.0 mmol/L (136-145); TOTAL PROTEIN, SERUM 8.3 g/dL (6.0-8.3); UREA NITROGEN, BLOOD 10.0 mg/dL (7-18)
[~2024-09-22] VITALS: Ht 170.2 cm; Wt 74.8 kg
[2024-09-22] VITALS (13 sets, daily range): BP systolic 131–144; BP diastolic 68–82; PULSE 55–66; RESP 15–18; TEMP 97.5–97.6
[2024-09-22] MEDS: LACTATED RINGERS 1000ML 1,000 ML IV ONE (07:19)
[2024-09-22] MEDS ORDERED: LIDOCAINE HCL 2% PF 20 ML JEL DISP.SYRIN MM ONE (07:30)
[2024-09-22] MEDS ORDERED: LIDOCAINE PF 100MG/5ML (2%) SYRINGE 5ML ONE (07:46)
[2024-09-22] MEDS ORDERED: SUCCINYLCHOLINE CHLORIDE 20 MG/ML 10 ML VIAL ONE (07:47)
[2024-09-22] MEDS ORDERED: NEOSTIGMINE METHYLSULFATE 1MG/ML IV ONE (07:47)
[2024-09-22] MEDS ORDERED: GLYCOPYRROLATE 0.2 MG/ML 5 ML VIAL ONE (07:47)
[2024-09-22] MEDS: LIDOCAINE HCL 1% 20 ML VIAL ONE (08:08)
[2024-09-22] MEDS: LIDOCAINE HCL 2% JELLY 5 ML TP ONE (08:13)
--- NOTE | 2024-09-22 08:29 | OP ---
Operative Note: DATE OF PROCEDURE: 09/22/24 SURGEON: INGRID BUTTERFIELD MD TURNING SANDER OPERATOR: [none] ANESTHESIA: [GETA + Local] PREOPERATIVE DIAGNOSIS: [Large anal ulcer.] POSTOPERATIVE DIAGNOSIS: [Same.] SYNOPSIS: [HIV-positive patient presents with anal pain and a large anal ulcer posteriorly with a history of previous colorectal cancer and radiation therapy.] PROCEDURE: [Exam under anesthesia. Biopsy of anal ulcer.] ESTIMATED BLOOD LOSS: [None.] INDICATIONS: [This is a 58-year-old male with a history of HIV who presents to the office with severe anal pain and bleeding. Examination reveal a deep po sterior anal ulcer of the exam was very limited in the office due to pain. With these findings he was advised to undergo an examination under anesthesia with biopsies. Risks were abrasions and alternatives were explained in detail to the patient who granted consent.] DESCRIPTION OF PROCEDURE: [The patient was identified in the holding area transferred to the OR placed supine on the operative table. Venodyne boots were placed, time-out conducted IV antibiotics given and it was placed in lithotomy position with great care taken to pad all pressure points. Was prepped and draped in the usual sterile fashion and an anal block was given with 0.25% Marcaine. Careful examination reveal a deep posterior ulcer involving the anal canal and a spur in the rectum. It extended to the posterior anal verge with with deep crevices and an ulcerated partially necrotic lesion. This ulcer was biopsied in multiple places and specimen sent to the back table. Hemostasis obtained with the Bovie cautery. Gelfoam and Surgicel were left in the anal canal with lidocaine jelly. Counts were done and correct, there were no complications, I was present and scrubbed for the entire case.] INGRID BYRD MD Sep 22, 2024 08:29
== END 2024-09-22 10:15 | disposition home or self-care (01) ==
LOC: DAH 06:12
PROVIDERS: ATTEND Surgery
DX: K62.6 Ulcer of anus and rectum (principal); K62.4 Stenosis of anus and rectum; K92.1 Melena; I10 Essential (primary) hypertension; I45.10 Unspecified right bundle-branch block; Z21 Asymptomatic human immunodeficiency virus [HIV] infection status; Z85.048 Personal history of other malignant neoplasm of rectum, rectosigmoid junction, and anus; Z79.01 Long term (current) use of anticoagulants; Z98.890 Other specified postprocedural states; Z79.899 Other long term (current) drug therapy
CPT/HCPCS: 80053; 85025; 85610; 85730; 36415; 93005; 46999; 88305; A6260; A4663; A4606; J7120; J3010; J1100; J0330; J0665; J3490 ×2; J2003; J2704; J2710; J0690 ×2; A4649; A4215; A4223; A4213; A4222; A4221

== ENCOUNTER 2024-11-15 06:19 | Day surgery (SDC) | payer OTHER, MEDICARE ==
[2024-11-15] VITALS (11 sets, daily range): BP systolic 124–145; BP diastolic 60–72; PULSE 49–63; RESP 14–18; TEMP 97.6–98.1
[~2024-11-15] VITALS: Ht 167.6 cm; Wt 72.6 kg
[2024-11-15] MEDS ORDERED: LIDO5CRE8 TP (06:58)
[2024-11-15] MEDS: 0.9%NACL 1000ML 1,000 ML IV ONE (07:33)
[2024-11-15] MEDS ORDERED: LIDOCAINE PF 100MG/5ML (2%) SYRINGE 5ML ONE (08:02)
== END 2024-11-15 09:43 | disposition home or self-care (01) ==
LOC: DAH 06:19
PROVIDERS: ATTEND Surgery
DX: Z12.11 Encounter for screening for malignant neoplasm of colon (principal); D12.0 Benign neoplasm of cecum; K62.89 Other specified diseases of anus and rectum; Z90.49 Acquired absence of other specified parts of digestive tract; Z98.890 Other specified postprocedural states; Z85.038 Personal history of other malignant neoplasm of large intestine; Z79.899 Other long term (current) drug therapy
CPT/HCPCS: 45380; J7030; J2003; J2704; A4620; A4215 ×2; A4223; A4222; A4221; A4663; A4606; J3490

== ENCOUNTER 2024-11-20 08:55 | Emergency (ER) | payer OTHER, MEDICARE ==
[~2024-11-20] VITALS: Ht 167.6 cm; Wt 73.5 kg
[~2024-11-20 08:55] MED LIST changes: +LIDO5CRE8 TP
[2024-11-20 09:42] LABS: IMMATURE GRANULOCYTE ABSOLUTE 0.01 K/uL (0-1); NUCLEATED RED BLOOD CELLS 0.0 % (0.0-0.19); PLATELET COUNT (AUTO) 210 K/uL (130-400); RED BLOOD CELL COUNT(AUTO) 4.69 MIL/uL (4.50-6.20); RED CELL DISTRIBUTION WIDTH 12.2 % (11.0-15.5); WHITE BLOOD COUNT (AUTO) 8.1 K/uL (4.8-10.8)
[2024-11-20 09:51] LABS: CREATININE 0.9 mg/dL (0.5-1.3); GLOMERULAR FILTR. RATE CALC 98.0 mL/min (>90); GLUCOSE,RANDOM 112.0 mg/dL (70-105); SODIUM SERUM 137.0 mmol/L (136-145); UREA NITROGEN, BLOOD 13.0 mg/dL (7-18)
[2024-11-20 09:52] LABS: INR 1.06 (0.85-1.15)
[2024-11-20 09:55] LABS: ASPARTATE AMINOTRANSFERASE 22.0 U/L (10-37); TOTAL PROTEIN, SERUM 9.0 g/dL (6.0-8.3)
--- NOTE | 2024-11-20 09:58 | ERN ---
ED Note History of Present Illness Stated Complaint: RECTAL BLEEDING Chief Complaint: Rectal Bleed Time Seen by MD: 09:41 Time Seen by Midlevel: 09:43 Dictation: Mr. Mcclellan is a 58 year old gentleman with history of colon cancer and HIV (told to nursing staff/patient state he does not want his to know) who presented to the emergency department this morning for evaluation of rectal bleeding. Patient states he was diagnosed with colon cancer in 2014 and has been followed by Dr. Whittaker. He states cancer has been in remission. A few weeks ago he developed some fatigue as well as pink spotting /bleeding from rectum. He had a colonoscopy on Friday and they noted 2 polyps. He states that he also had recent PET scan. He saw his oncologist on for results adn was told that he would need to start radiation and chemotherapy; no surgery. He states that today he was in the shower and noted more rectal bleeding (red/pink) as well as rectal pain. He states he also felt a mass in rectum. He Denies fever, chills, shortness of breath, cough, chest pain, palpitations, edema, abdominal pain, nausea, vomiting, hematemesis, constipation, diarrhea, melena, dysuria, headache, dizziness, or focal weakness/paresthesia. Allergies: Coded Allergies: No Known Drug Allergies (Unverified Allergy, Unknown, 05/11/17) Home Meds Active Scripts Tramadol Hcl (Tramadol HCl) 50 Mg Tablet, 50 MG PO q 12 hours PRN for pain, #10 TAB 0 Refills Prov:SHILO DUGGAN NP 11/20/24 Reported Medications Lidocaine (Anecream) 4 % Cream..g., 1 APPL TP BID for 30 Days, #30 GM 0 Refills 11/15/24 Dolutegravir Sodium (Tivicay) 50 Mg Tablet, 50 MG PO DAILY, TAB 06/28/22 Darunavir/Cobicistat (Prezcobix 800 mg-150 mg Tablet) 1 Each Tablet, 1 EACH PO DAILY, TAB 06/28/22 Past Medical History Past Medical History: Cancer, Other (HIV) Additional Past Medical Hx: HIV; HX OF COLON CA (IN REMISSION) Surgical History: Other Surgical History Other: hernia repair PSYCH History: no pertinent psych hx Family History: Negative Social History: Negative, Lives with family RN Note Reviewed/Agreed w/PFSH: Yes Review of System Dictation REVIEW OF SYSTEMS: CONSTITUTIONAL: Patient denies fevers, chills, sweats and weight changes. EYES: Patient denies any visual symptoms. EARS, NOSE, AND THROAT: No difficulties with hearing. No symptoms of rhinitis or sore throat. CARDIOVASCULAR: Patient denies chest pains, palpitations, orthopnea and paroxysmal nocturnal dyspnea. RESPIRATORY: No dyspnea on exertion, no wheezing or cough. GI: No nausea, vomiting, diarrhea, constipation, abdominal pain or melena. Reports rectal pain, rectal mass, and bright red rectal bleeding. : No urinary hesitancy or dribbling. No nocturia or urinary frequency. No abnormal urethral discharge. MUSCULOSKELETAL: No myalgias or arthralgias. NEUROLOGIC: No chronic headaches, no seizures. Patient denies numbness, tingling or weakness. PSYCHIATRIC: Patient denies problems with mood disturbance. No problems with anxiety. ENDOCRINE: No excessive urination or excessive thirst. DERMATOLOGIC: Patient denies any rashes or skin changes. Initial Vital Sign VS Vital Signs Date Time Temp Pulse Resp B/P (MAP) Pulse Ox O2 Delivery O2 Flow Rate FiO2 11/20/24 08:57 95.0 65 16 146/65 99 Nasal Cannula 0 11/20/24 09:00 21 Physical Exam Dictation Vital signs: Stable; afebrile. Head/Face: Normocephalic, atraumatic. Eyes: Periorbital areas with no swelling, redness, or edema. Lids and lashes are normal. Conjunctival injection is absent. Sclera anicteric. Pupils equal, round, reactive to light. ENT: Pinnas intact and no signs of trauma or erythema. Ear canals clear and no discharge. TMs no erythema. No nasal discharge or bleeding noted. Oropharynx with no exudate, redness, swelling, masses, exudates, or evidence of obstruction. Uvula midline. Mucous membranes moist. Neck: Trachea midline, no masses palpated, and no cervical lymphadenopathy. No swelling. Supple, full range of motion. Chest/Axilla: No tenderness, no crepitus, no paradoxical movement, no retractions. Cardiovascular: Regular rate, regular rhythm, no murmur, no gallops. Symmetric pulses. No peripheral edema. Normotensive. Respiratory: Respirations even and unlabored. Lung sounds clear; no wheezes, rales or rhonchi. Room air spo2 99%. Gastrointestinal: Inspection is normal. No distention is appreciated. Bowel sounds are normal. No mass or organomegaly . There is no tenderness. No rebound. No rigidity. No voluntary or involuntary guarding. No Bernal's sign. Rectal exam: And irregularly-shaped firm rectal mass large as noted, extending internally into the rectal vault, with a portion protruding externally at the anal verge. The lesion is friable and actively bleeding during the exam. There is no surrounding fluctuance or erythema. Stool is Hemoccult positive. Neurological: Normal speech, gross motor function intact, gross sensory function intact. No focal weakness/Paresthesia. Musculoskeletal/Extremities: All extremities have full range of motion, no pain or tenderness on palpation. Symmetric pulses. Integumentary: Intact. Skin is normal color, warm and dry. Cap refill less than 2 seconds. Results (Laboratory/Radiology) Laboratory/Radiology Laboratory Tests Test 11/20/24 09:35 11/20/24 11:30 White Blood Count 8.1 K/uL (4.8-10.8) Red Blood Count 4.69 MIL/uL (4.50-6.20) Hemoglobin 14.9 g/dL (14.0-18.0) Hematocrit 42.3 % (42-54) Mean Corpuscular Volume 90.2 fL (79-99) Mean Corpuscular Hemoglobin 31.8 pg (27.0-33.0) Mean Corpuscular Hemoglobin Concent 35.2 g/dL (32.0-36.0) Red Cell Distribution Width 12.2 % (11.0-15.5) Platelet Count 210 K/uL (130-400) Mean Platelet Volume 8.6 fL (7.5-10.5) Immature Granulocyte % (Auto) 0.1 % (0-1) Neutrophils (%) (Auto) 57.8 % (40.0-77.0) Lymphocytes (%) (Auto) 31.0 % (21.0-51.0) Monocytes (%) (Auto) 7.9 % (3.0-13.0) Eosinophils (%) (Auto) 2.7 % (0.0-8.0) Basophils (%) (Auto) 0.5 % (0.0-5.0) Neutrophils # (Auto) 4.7 K/uL (1.8-7.7) Lymphocytes # (Auto) 2.5 K/uL (1.0-4.8) Monocytes # (Auto) 0.6 K/uL (0.1-1.0) Eosinophils # (Auto) 0.22 K/uL (0.00-0.70) Basophils # (Auto) 0.04 K/uL (0.00-0.20) Absolute Immature Granulocyte (auto 0.01 K/uL (0-1) Nucleated Red Blood Cells 0.0 % (0.0-0.19) Prothrombin Time 11.2 SEC (9.6-11.6) Prothromb Time International Ratio 1.06 (0.85-1.15) Activated Partial Thromboplast Time 27.9 SEC (26.3-35.5) Sodium Level 137 mmol/L (136-145) Potassium Level 4.1 mmol/L (3.5-5.1) Chloride Level 101 mmol/L (101-111) Carbon Dioxide Level 29 mmol/L (21-32) Blood Urea Nitrogen 13 mg/dL (7-18) Creatinine 0.9 mg/dL (0.5-1.3) Glomerular Filtration Rate Calc 98 mL/min (>90) Random Glucose 112 mg/dL (70-105) H Total Calcium 8.9 mg/dL (8.5-10.1) Total Bilirubin 0.8 mg/dL (0.2-1.0) Direct Bilirubin 0.1 mg/dL (0.0-0.3) Aspartate Amino Transf (AST/SGOT) 22 U/L (10-37) Alanine Aminotransferase (ALT/SGPT) 20 U/L (12-78) Alkaline Phosphatase 76 U/L (50-136) Total Protein 9.0 g/dL (6.0-8.3) H Albumin 3.8 g/dL (3.5-5.0) Stool Occult Blood POSITIVE (NEGATIVE) H Labs Reviewed?: Yes CT Scan Comment: PATIENT: MARLENA MCCLELLAN MR#: [id number] : 1965 SEX: M AGE: 58 LOCATION: [facility] ORDER [id number] STATUS: REG REPORT#: [id number] SERVICE 1040 REASON: hx colon cancer. rectal mass/bleeding ORDERING PHYSICIAN: SHILO DUGGAN NP PROCEDURE: ABD PEL W - CT ABDOMEN/PELVIS W/CONTRAST EXAM: CT Abdomen and Pelvis with IV contrast CLINICAL HISTORY: hx colon cancer. rectal mass/bleeding TECHNIQUE: Axial computed tomography images of the abdomen and pelvis with intravenous contrast. CONTRAST: with intravenous contrast. COMPARISON: 01/07/24 CT abdomen and pelvis without contrast. FINDINGS: LUNG BASES: Bibasilar atelectasis. Otherwise, the lung bases appear clear. No pleural effusions are seen. LIVER: 9 x 10 mm-sized simple hepatic cyst in the right lobe. Otherwise unremarkable. GALLBLADDER AND BILE DUCTS: The gallbladder appears within normal limits. No radioopaque gallstones are seen. No biliary ductal dilatation is evident. PANCREAS: Unremarkable. SPLEEN: Unremarkable. ADRENAL GLANDS: Unremarkable. KIDNEYS, URETERS, AND BLADDER: The kidneys appear within normal limits. There is no hydronephrosis or hydroureter. No urinary calculi are seen. STOMACH AND BOWEL: Unremarkable appearance of the stomach and bowel. No evidence of bowel obstruction. No evidence suggesting enteritis or colitis. PERITONEUM: No free fluid. No free air. LYMPH NODES: A few enlarged lymph nodes in the suprarenal para-aortic region, the largest measuring approximately 15 x 12 mm. REPRODUCTIVE: Unremarkable as visualized. VASCULATURE: Atherosclerotic changes in the visualized arterial vasculature in the form of fibrocalcified plaque. No evidence of abdominal aortic aneurysm. BONES: Degenerative changes in the visualized spine in the form of marginal osteophytes. No aggressive appearing osseous lesion. No acute osseous pathology evident. OTHER FINDINGS: Large defect in the anterior abdominal wall with multiple hyperdense foreign body artifacts suggestive of postoperative changes, hernia repair.IMPRESSION: 1. Enlarged lymph nodes in the suprarenal para-aortic region, largest measuring 15 x 12 mm. 2. Postoperative changes with large anterior abdominal wall defect and hyperdense foreign body artifacts. 3. No other acute intraabdominal or pelvic findings. /[place] DICTATED BY: LUIS GRANT Jr., MD DATE: 11/20/24 1257 ELECTRONICALLY SIGNED BY: LUIS GRANT Jr., MD DATE: 11/20/24 1257 ED Course ED Course Orders Procedure Category Date Status Time Cbc With Differential LAB 11/20/24 Complete 09:14 Basic Metabolic Panel LAB 11/20/24 Complete 09:14 Hepatic Function Panel LAB 11/20/24 Complete 09:14 Pt And Ptt LAB 11/20/24 Complete 09:14 Prothrombin Time With LAB 11/20/24 Complete INR 09:14 Hydromorphone 0.5mg PHA 11/20/24 Complete Syg (Dilaudid 0.5mg 11:00 Ondansetron 4mg Inj PHA 11/20/24 Complete (Zofran 4mg Inj) 11:00 Saline Lock Iv CPOE 11/20/24 Transmitted 10:38 Occult Blood Stool LAB 11/20/24 Complete Single Only 10:39 Ct Abdomen/Pelvis CT 11/20/24 Resulted W/Contrast 10:40 Iohexol (Omnipaque) PHA 11/20/24 Complete 10:56 Current Medications Medications (Trade) Dose Ordered Sig/Julio Route PRN Reason Start Time Stop Time Status Last Admin Dose Admin Hydromorphone HCl (DiLAUDid 0.5MG INJ) 0.5 mg ONCE ONCE IVP 11/20/24 11:00 11/20/24 11:01 DC 11/20/24 11:31 Iohexol (Omnipaque) 75 ml STK-MED ONCE IV 11/20/24 10:56 11/20/24 10:56 DC Ondansetron HCl (zoFRAN 4MG INJ) 4 mg ONCE ONCE IVP 11/20/24 11:00 11/20/24 11:01 DC 11/20/24 11:31 Vital Signs Date Time Temp Pulse Resp B/P (MAP) Pulse Ox O2 Delivery O2 Flow Rate FiO2 11/20/24 11:41 98.1 59 13 140/71 100 Room Air* 0 21 11/20/24 09:38 97.9 65 15 132/58 100 Room Air* 0 21 11/20/24 09:00 97.7 65 16 146/65 99 Room Air* 0 21 11/20/24 08:57 95.0 65 16 146/65 99 Nasal Cannula 0 While in the ED he received doses Zofran and Dilaudid. There is no active rectal bleeding at this time. There is only spotting to adult diaper. I attempted to speak with his colorectal surgeon Dr. Flower. 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 He remains hemodynamically stable; H/H 14.9/42.3. CT scan of the abdomen and pelvis with no evidence of obstruction, perforation, or abscess. He has been advised to follow up Friday with colorectal surgeon and/or oncologist. Of instability and viral-like close follow up, discharge home with strict return precautions as appropriate at this time. Medical Decision Making MDM MDM: Differential diagnosis: symptomatic anemia, rectal abscess, hemorrhoid Rationale: Tests considered and ordered secondary to shared decision making include: lab, CT Previous outside records reviewed: Old ER visits. Risk of complication and/or morbidity or mortality of patient management: None Medications-Per medication reconciliation Need for hospitalization: Patient does not meet criteria for hospitalization. Need for emergency major/minor surgery: No There are no social concerns with this patient. Prescription drug management: Tramadol Prescriptions will include symptomatic care Patient's prior external medical records from other ER visits were reviewed by me as indicated. Prior testing and results from previous visits were reviewed. Prior tests were taken into account with medical decision making and resource utilization, independent historian/historians were used to obtain complete medical history. I independently interpreted the test that were performed, results were reviewed by me and considered findings on radiology if ordered. Medical management and examination interpretation discussions were had by me with other qualified healthcare professionals as indicated for the patient's care. DX & DISP Disposition: Discharge Departure Impression: Primary Impression: Mass in rectum Additional Impressions: Rectal bleeding, Colon cancer, Rectal pain Condition: Stable Scripts Tramadol Hcl (Tramadol HCl) 50 Mg Tablet 50 MG PO q 12 hours PRN for pain, #10 TAB 0 Refills Prov: SHILO DUGGAN NP 11/20/24 Additional Instructions: You will need to follow up on Friday with colorectal surgeon, Dr. Gunjan Bro as well as oncologist Dr. Whittaker. Continue hydration, stool softeners if constipated (to minimize trauma from straining) keep scheduled oncology appointment for chemoradiation. Return immediately for increased risk brisk rectal bleeding, dizziness, syncope, abdominal pain, fevers, or vomiting. Referrals: VINCENZO GARCIA MD (PCP) Time of Disposition: 11:39 SHILO DUGGAN DIRECTOR HR COMMUNICATIONS Nov 20, 2024 09:58
[2024-11-20] MEDS ORDERED: IOHEXOL-350 75 ML VIAL IV ONE (10:56)
[2024-11-20] MEDS ORDERED: TRAM50TA4 PO (11:37)
--- NOTE | 2024-11-20 11:58 | HMCIMG ---
EXAM: CT Abdomen and Pelvis with IV contrast CLINICAL HISTORY: hx colon cancer. rectal mass/bleeding TECHNIQUE: Axial computed tomography images of the abdomen and pelvis with intravenous contrast. CONTRAST: with intravenous contrast. COMPARISON: 01/07/24 CT abdomen and pelvis without contrast. FINDINGS: LUNG BASES: Bibasilar atelectasis. Otherwise, the lung bases appear clear. No pleural effusions are seen. LIVER: 9 x 10 mm-sized simple hepatic cyst in the right lobe. Otherwise unremarkable. GALLBLADDER AND BILE DUCTS: The gallbladder appears within normal limits. No radioopaque gallstones are seen. No biliary ductal dilatation is evident. PANCREAS: Unremarkable. SPLEEN: Unremarkable. ADRENAL GLANDS: Unremarkable. KIDNEYS, URETERS, AND BLADDER: The kidneys appear within normal limits. There is no hydronephrosis or hydroureter. No urinary calculi are seen. STOMACH AND BOWEL: Unremarkable appearance of the stomach and bowel. No evidence of bowel obstruction. No evidence suggesting enteritis or colitis. PERITONEUM: No free fluid. No free air. LYMPH NODES: A few enlarged lymph nodes in the suprarenal para-aortic region, the largest measuring approximately 15 x 12 mm. REPRODUCTIVE: Unremarkable as visualized. VASCULATURE: Atherosclerotic changes in the visualized arterial vasculature in the form of fibrocalcified plaque. No evidence of abdominal aortic aneurysm. BONES: Degenerative changes in the visualized spine in the form of marginal osteophytes. No aggressive appearing osseous lesion. No acute osseous pathology evident. OTHER FINDINGS: Large defect in the anterior abdominal wall with multiple hyperdense foreign body artifacts suggestive of postoperative changes, hernia repair.IMPRESSION: 1. Enlarged lymph nodes in the suprarenal para-aortic region, largest measuring 15 x 12 mm. 2. Postoperative changes with large anterior abdominal wall defect and hyperdense foreign body artifacts. 3. No other acute intraabdominal or pelvic findings. /[place]
[2024-11-20 12:41] VITALS: BP 140/75; PULSE 56; RESP 14; TEMP 97.8; O2SAT 100
--- NOTE | 2024-11-20 12:42 | NUR ---
DC PATIENT WAS DC'D BY SHILO DUGGAN UAT TESTER I DC'D PATIENTS IV WITH CATH STILL INTACT AND APPLIED 2X2 GAUZE WITH COBAN I EXPLAINED TO PATIENT TO FOLLOW UP WITH PCP, DR JOHNSTON, AND DR CARMONA SCHEDLUED. I ALSO PROVIDED INFO BASED ON DIAGNOSIS, PRESCRIPTIONS, AND ANSWERED ANY FOLLOW UP QUESTIONS PATIENT AMBULATED OUT OF ED, NO COMPLICATIONS
== END 2024-11-20 12:43 | disposition home or self-care (01) ==
LOC: EDH 08:55
DX: K62.5 Hemorrhage of anus and rectum (principal); C18.9 Malignant neoplasm of colon, unspecified; K62.89 Other specified diseases of anus and rectum; Z21 Asymptomatic human immunodeficiency virus [HIV] infection status; Z85.048 Personal history of other malignant neoplasm of rectum, rectosigmoid junction, and anus; Z98.890 Other specified postprocedural states
CPT/HCPCS: 99285; 74177; 96374; 96375; 82270; 80076; 80048; 85025; 85610; 85730; 36415; J2405; Q9967; J1171

== ENCOUNTER 2024-12-05 19:57 | Emergency (ER) | payer OTHER, MEDICARE ==
[~2024-12-05] VITALS: Ht 170.2 cm; Wt 70.3 kg
[~2024-12-05 19:57] MED LIST changes: +TRAM50TA4 PO
[2024-12-05] MEDS ORDERED: LIDOCAINE 1%-EPI 1:100,000 20 ML VIAL IJ SCH (20:30)
--- NOTE | 2024-12-05 20:34 | EKG ---
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
[2024-12-05] MEDS: LACTATED RINGERS 1000ML IV STA ×2 (20:59→23:24)
--- NOTE | 2024-12-05 21:04 | NUR ---
PT AWARE OF PENDING URINE SAMPLE, URINAL PROVIDED, PT STATES UNABLE TO GO AT THIS TIME
[2024-12-05 21:05] LABS: RAPID GROUP A STREP negative (NEGATIVE)
[2024-12-05 21:11] LABS: IMMATURE GRANULOCYTE ABSOLUTE 0.04 K/uL (0-1); NUCLEATED RED BLOOD CELLS 0.0 % (0.0-0.19); PLATELET COUNT (AUTO) 137 K/uL (130-400); RED BLOOD CELL COUNT(AUTO) 3.34 MIL/uL (4.50-6.20); RED CELL DISTRIBUTION WIDTH 12.0 % (11.0-15.5); WHITE BLOOD COUNT (AUTO) 6.3 K/uL (4.8-10.8)
[2024-12-05 21:13] LABS: COVID19 (SARS ANTIGEN RAPID) PRESUMPTIVE NEGATIVE (NEGATIVE); INFLUENZA TYPE A Negative For Type A (NEGATIVE); INFLUENZA TYPE B Negative For Type B (NEGATIVE)
[2024-12-05 21:27] LABS: ASPARTATE AMINOTRANSFERASE 11.0 U/L (10-37); CREATININE 0.8 mg/dL (0.5-1.3); GLOMERULAR FILTR. RATE CALC 101.0 mL/min (>90); GLUCOSE,RANDOM 133.0 mg/dL (70-105); SODIUM SERUM 136.0 mmol/L (136-145); TOTAL PROTEIN, SERUM 7.7 g/dL (6.0-8.3); UREA NITROGEN, BLOOD 6.0 mg/dL (7-18)
--- NOTE | 2024-12-05 22:01 | NUR ---
PT REMINDED OF PENDING URINE SAMPLE, CONTINUES TO VERBALIZE UNABLE TO PROVIDE SAMPLE AT THIS TIME
[2024-12-05 22:28] LABS: ADD UA MICROSCOPIC NO; APPEARANCE,URINE CLEAR (CLEAR); GLUCOSE, URINE (UA) NEGATIVE (NEGATIVE); LEUKOCYTE ESTERASE ,URINE NEGATIVE Leu/uL (NEGATIVE); NITRATE,URINE NEGATIVE (NEGATIVE); OCCULT BLOOD,URINE NEGATIVE (NEGATIVE)
--- NOTE | 2024-12-05 23:08 | ERN ---
General Chief Complaint: Fever Stated Complaint: SORE THROAT, FEVER, FATIQUE. CANCER PT Time Seen by MD: 20:07 Source: patient History of Present Illness Initial Comments 58-year-old male recently diagnosed with colon cancer on chemotherapy comes in with a sore throat feeling tired and a fever over the last three days. Patient also has a productive cough. Patient does not know the chemotherapeutic medications that he is taking. 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 11/20/24 Reported Medications Lidocaine (Anecream) 4 % Cream..g., 1 APPL TP BID for 30 Days, #30 GM 0 Refills 11/15/24 Dolutegravir Sodium (Tivicay) 50 Mg Tablet, 50 MG PO DAILY, TAB 06/28/22 Darunavir/Cobicistat (Prezcobix 800 mg-150 mg Tablet) 1 Each Tablet, 1 EACH PO DAILY, TAB 06/28/22 Past Medical History Past Medical History: Cancer, Other Medical History Other: HIV; HX OF COLON CA Past Surgical History: Appendectomy, Other Surgical History Other: hernia repair Family History Family History: Negative Social History Social History: Negative, Lives with family Constitutional: (+) fever EENTM: (-) eye pain, (-) blurred vision, (-) tearing, (-) double vision, (-) ear pain, (-) ear discharge, (-) nose pain, (-) nose congestion, (-) throat pain, (-) Throat swelling, (-) mouth pain, (-) tooth pain, (-) mouth swelling, (-) other documentation Respiratory: (+) cough, (+) short of breath Cardiovascular: (+) chest pain Gastrointestinal/Abdominal: (-) nausea, (-) vomiting, (-) diarrhea, (-) abdominal pain, (-) abdominal distention, (-) constipation, (-) rectal bleeding, (-) dark stool/melena, (-) other documentation Genitourinary: (-) penile discharge, (-) dysuria, (-) frequency, (-) hematuria, (-) pain, (-) other documentation Musculoskeletal: (-) Neck pain, (-) back pain, (-) Flank Pain, (-) joint pain, (-) joint swelling, (-) muscle pain, (-) muscle stiffness, (-) gout, (-) other documentation Skin: (-) laceration, (-) contusion, (-) abrasion, (-) abscess, (-) rash, (-) change in color, (-) change in hair, (-) change in nails, (-) diaphoresis, (-) dryness, (-) other documentation Neuro: (-) altered mental status, (-) headache, (-) syncope, (-) paralysis, (-) numbness, (-) seizure, (-) pre-existing deficit, (-) tremors, (-) weakness, (-) dizziness, (-) slurred speech, (-) vertigo, (-) other documentation Physical Exam General Appearance: (+) mild distress Orientation: (+) alert, (+) oriented x 3 Head/Face Trauma: No Eye: bilateral eye normal inspection, bilateral eye PERRL, bilateral eye EOMI Ear, Nose, Throat: (+) hearing grossly normal, (+) normal ENT inspection, (+) moist mucous membraine Neck: (+) normal inspection, (+) supple, (+) full range of motion, (+) no JVD Respiratory: (+) chest non-tender, (+) lungs clear, (+) well ventilated Respiratory Comment Port-A-Cath in place right chest Heart: (+) no gallop, (+) irregular Gastrointestinal: (+) soft, (+) non-tender, (+) bowel sound present Results Laboratory and Microbiology Lab and Micro Result Laboratory Tests Test 12/05/24 20:46 12/05/24 21:04 12/05/24 22:17 Influenza Type A Antigen Negative For Type A Influenza Type B Antigen Negative For Type B SARS-CoV-2 Antigen (Rapid) PRESUMPTIVE NEGATIVE Group A Streptococcus Rapid negative (NEGATIVE) White Blood Count 6.3 K/uL (4.8-10.8) Red Blood Count 3.34 MIL/uL (4.50-6.20) L Hemoglobin 10.7 g/dL (14.0-18.0) L Hematocrit 28.9 % (42-54) L Mean Corpuscular Volume 86.5 fL (79-99) Mean Corpuscular Hemoglobin 32.0 pg (27.0-33.0) Mean Corpuscular Hemoglobin Concent 37.0 g/dL (32.0-36.0) H Red Cell Distribution Width 12.0 % (11.0-15.5) Platelet Count 137 K/uL (130-400) Mean Platelet Volume 9.1 fL (7.5-10.5) Immature Granulocyte % (Auto) 0.6 % (0-1) Neutrophils (%) (Auto) 69.3 % (40.0-77.0) Lymphocytes (%) (Auto) 18.4 % (21.0-51.0) L Monocytes (%) (Auto) 11.2 % (3.0-13.0) Eosinophils (%) (Auto) 0.2 % (0.0-8.0) Basophils (%) (Auto) 0.3 % (0.0-5.0) Neutrophils # (Auto) 4.4 K/uL (1.8-7.7) Lymphocytes # (Auto) 1.2 K/uL (1.0-4.8) Monocytes # (Auto) 0.7 K/uL (0.1-1.0) Eosinophils # (Auto) 0.01 K/uL (0.00-0.70) Basophils # (Auto) 0.02 K/uL (0.00-0.20) Absolute Immature Granulocyte (auto 0.04 K/uL (0-1) Nucleated Red Blood Cells 0.0 % (0.0-0.19) Red Blood Cell Morphology See comments Sodium Level 136 mmol/L (136-145) Potassium Level 3.0 mmol/L (3.5-5.1) *L Chloride Level 101 mmol/L (101-111) Carbon Dioxide Level 24 mmol/L (21-32) Blood Urea Nitrogen 6 mg/dL (7-18) L Creatinine 0.8 mg/dL (0.5-1.3) Glomerular Filtration Rate Calc 101 mL/min (>90) Random Glucose 133 mg/dL (70-105) H Total Calcium 8.0 mg/dL (8.5-10.1) L Total Bilirubin 0.6 mg/dL (0.2-1.0) Aspartate Amino Transf (AST/SGOT) 11 U/L (10-37) Alanine Aminotransferase (ALT/SGPT) 12 U/L (12-78) Alkaline Phosphatase 55 U/L (50-136) Total Protein 7.7 g/dL (6.0-8.3) Albumin 2.8 g/dL (3.5-5.0) L Procalcitonin 1.85 ng/mL (0.05-0.5) H Acetaminophen Level 10 mcg/mL (10-29) Urine Color LIGHT-YELLOW (YELLOW) Urine Appearance CLEAR (CLEAR) Urine pH 6.5 (5.0-8.0) Urine Specific [place] 1.007 (1.001-1.031) Urine Protein NEGATIVE mg/dL (NEGATIVE) Urine Glucose (UA) NEGATIVE mg/dL (NEGATIVE) Urine Ketones NEGATIVE mg/dL (NEGATIVE) Urine Occult Blood NEGATIVE (NEGATIVE) Urine Nitrate NEGATIVE (NEGATIVE) Urine Bilirubin NEGATIVE mg/dL (NEGATIVE) Urine Urobilinogen 0.2 mg/dL (0.2-1.0) Urine Leukocyte Esterase NEGATIVE Izabella/uL MDM MDM: Differential diagnosis: Upper respiratory tract infection, pneumonia, intra-abdominal infection, a reaction to chemotherapy. Rationale: Tests considered and ordered secondary to shared decision making include: Previous outside records reviewed: Old ER visits. Risk of complication and/or morbidity or mortality of patient management: None Medications-Per medication reconciliation Need for hospitalization: Patient does meet criteria for hospitalization. Need for emergency major/minor surgery: No There are no social concerns with this patient. Prescription drug management Prescriptions will include symptomatic care Patient's prior external medical records from other ER visits were reviewed by me as indicated. Prior testing and results from previous visits were reviewed. Prior tests were taken into account with medical decision making and resource utilization, independent historian/historians were used to obtain complete medical history. I independently interpreted the test that were performed, results were reviewed by me and considered findings on radiology if ordered. Patient's CBC shows a normal white blood cell count and a mild anemia. Chemistry panel shows a mild hypokalemia and a mild elevation in his proc alcitonin. I recommended to the patient that we get a CT scan of his abdomen and pelvis and chest to rule out a deeper source of infection because of the elevated procalcitonin and he deferred he plans to go see his doctor in the morning. Patient's another L of fluid it has helped his symptoms. I will discharge him with some anti nausea medicine anti cough medicine. ED Course Orders Procedure Category Date Status Time Lidocaine 1%-Epi PHA 12/05/24 Complete 1:100,000 (Lidocaine 20:30 12 Lead Ekg Tracing- EKG 12/05/24 Complete Technical 20:24 Acetaminophen LAB 12/05/24 Complete 20:24 Comprehensive LAB 12/05/24 Complete Metabolic Panel 20:24 Cbc With Differential LAB 12/05/24 Complete 20:24 Procalcitonin LAB 12/05/24 Complete 20:24 Rapid (Group A Strep) LAB 12/05/24 Complete 20:24 Urinalysis Profile LAB 12/05/24 Complete 20:24 Influenza Type A & B, LAB 12/05/24 Complete Rapid 20:24 Covid19 (Sars Antigen LAB 12/05/24 Complete Rapid) 20:24 Ondansetron 4mg Inj PHA 12/05/24 Complete (Zofran 4mg Inj) 20:30 Lactated Ringers PHA 12/05/24 Complete 1000ml (Lactated 20:24 Lactated Ringers PHA 12/05/24 Complete 1000ml (Lactated 22:41 Ondansetron 4mg Inj PHA 12/05/24 Complete (Zofran 4mg Inj) 23:00 Ct Chest/Abd/Pelv CT 12/05/24 Logged W/Conrast 22:41 Current Medications Medications (Trade) Dose Ordered Sig/Julio Route PRN Reason Start Time Stop Time Status Last Admin Dose Admin Lactated Ringer's (Lactated Ringers 1000ml) 1,000 ml BOLUS STAT IV 12/05/24 20:24 12/05/24 20:28 DC 12/05/24 20:59 Lactated Ringer's (Lactated Ringers 1000ml) 1,000 ml BOLUS STAT IV 12/05/24 22:41 12/05/24 22:45 DC 12/05/24 23:24 Lidocaine/ Epinephrine (Lidocaine 1%-Epi 1:100,000) 20 ml ONCE IJ 12/05/24 20:30 12/05/24 20:11 DC Ondansetron HCl (zoFRAN 4MG INJ) 4 mg ONCE ONCE IVP 12/05/24 20:30 12/05/24 20:31 DC 12/05/24 20:59 Ondansetron HCl (zoFRAN 4MG INJ) 4 mg ONCE ONCE IVP 12/05/24 23:00 12/05/24 23:01 DC 12/05/24 23:24 Vital Signs Date Time Temp Pulse Resp B/P (MAP) Pulse Ox O2 Delivery O2 Flow Rate FiO2 12/05/24 21:58 98.2 76 14 134/60 100 Room Air* 0 21 12/05/24 20:50 100.0 77 15 122/61 99 Room Air* 0 21 12/05/24 19:59 100.0 95 20 121/65 97 Room Air DX & DISP Disposition: Discharge Departure Impression: Primary Impression: Upper respiratory tract infection Additional Impressions: Hypokalemia, Colon cancer Condition: Stable Scripts Ondansetron (Ondansetron Odt) 4 Mg Tab.rapdis 1 TAB PO Q6HPRN PRN for nausea/vomiting for 4 Days, #16 TAB 0 Refills Prov: CHRSITIAN LEPE MD 12/05/24 Benzonatate (Benzonatate) 200 Mg Capsule 1 CAP PO TID for cough for 10 Days, #30 CAP 0 Refills Prov: CHRISTIAN LEPE MD 12/05/24 Additional Instructions: You have an upper respiratory tract infection and possibly some nausea and vomiting from your chemotherapy. Our nasal swabs here are negative for influenza or COVID or strep throat. Description of your symptoms I think you have a bronchitis. Most likely it is viral. I have given you prescriptions for your nausea and vomiting and also to help suppress her cough. I have given you fluid you should feel better. I recommend that you follow-up with your primary care physician tomorrow as you do have a marker of inflammation and infection that is elevated in your body. Referrals: VINCENZO GARCIA MD (PCP) CHRISTIAN LEPE MD Dec 05, 2024 23:08
--- NOTE | 2024-12-05 23:28 | NUR ---
PT STATED HE DOES NOT WANT CT SCAN, MADE AWARE
[2024-12-05] MEDS ORDERED: IOHEXOL-350 75 ML VIAL IV ONE (23:33)
[2024-12-05] MEDS ORDERED: ONDA-243 PO (23:35)
[2024-12-05] MEDS ORDERED: BENZ200C53 PO (23:35)
[2024-12-05 23:54] VITALS: BP 144/69; PULSE 73; RESP 16; TEMP 99.1; O2SAT 100
== END 2024-12-06 00:07 | disposition home or self-care (01) ==
LOC: EDH 19:57
DX: J06.9 Acute upper respiratory infection, unspecified (principal); E87.6 Hypokalemia; C18.9 Malignant neoplasm of colon, unspecified; Z20.822 Contact with and (suspected) exposure to COVID-19; Z90.49 Acquired absence of other specified parts of digestive tract; Z98.890 Other specified postprocedural states
CPT/HCPCS: 99285; 96374; 87426; 96361; 80053; 85025; 87880; 87804 ×2; 81003; 36415; 96376; 93005; 84145; J7120 ×2; J2405 ×2; Q9967